=== PATIENT | female | born 1995 | race Caucasian/White ===

== ENCOUNTER → 2023-07-19 | Outpatient (CLI) | payer BC ==
[2023-07-19 21:24] LABS: HCG,Qualitative Serum Not Detected
[2023-07-20 03:01] LABS: Basophils # (A) 0.02 X 10*3/uL (0.00-0.10); Basophils % (A) 0.2 %; Eosinophils # (A) 0.05 X 10*3/uL (0.04-0.35); Eosinophils % (A) 0.6 %; HGB 12.6 g/dL (12.0-15.0); Lymphocytes # (A) 2.15 X 10*3/uL (0.90-5.00); Lymphocytes % (A) 26.7 %; MCH 28.7 pg (27.0-32.0); MCHC 32.3 g/dL (32.0-37.0); MCV 88.8 FL (80.0-97.0); Mean Platelet Volume 12.3 FL (9.5-12.2); Monocytes # (A) 0.56 X 10*3/uL (0.20-1.00); NRBC Per 100 WBC 0 X 10*3/uL (0.00-0.01); Neutrophils # (A) 5.25 X 10*3/uL (1.80-7.70); Neutrophils % (A) 65.3 %; Platelet Count 175 X 10*3/uL (140-440); RBC 4.39 X 10*6/uL (4.10-5.20); RDW 13.5 % (11.5-14.5); WBC 8.05 X 10*3/uL (4.50-10.00)
[2023-07-20 03:02] LABS: ALT 9 U/L (8-44); AST 19 U/L (13-35); Albumin 4.5 g/dL (3.8-4.9); Albumin/Globulin Ratio 1.55 Ratio (1.60-3.17); Alkaline Phosphatase 81 U/L (41-126); BUN/Creat Ratio 17.33 Ratio (12.00-20.00); Blood Urea Nitrogen 10.4 mg/dL (9.0-27.0); Calcium 10.1 mg/dL (8.7-10.3); Carbon Dioxide 22.3 mmol/L (21.6-31.8); Chloride 106 mmol/L (96-109); Globulin 2.9 g/dL (1.6-3.3); Glucose 92 mg/dL (70-110); Potassium 3.7 mmol/L (3.5-5.5); Sodium 141 mmol/L (135-145); Total Bilirubin 0.2 mg/dL (0.3-1.2); Total Protein 7.4 g/dL (6.2-8.2)
[2023-07-20 06:22] LABS: HIV 2 AB Non-Reactive (Non-Reactive); HIV AB P24 Non-Reactive (Non-Reactive); HIV P24 AG Non-Reactive (Non-Reactive)
[2023-07-20 06:24] LABS: HSV I IgG Interp Negative (Negative); HSV II IgG Interp Negative (Negative)
== END | disposition home or self-care (01) ==
LOC: LABWHC1 15:42
PROVIDERS: ATTEND Internal Medicine
DX: Z00.00 Encounter for general adult medical examination without abnormal findings (principal); Z72.51 High risk heterosexual behavior
CPT/HCPCS: 36415; 80053; 84443; 84703; 85025; 86695; 86696; 86780; 87390

== ENCOUNTER → 2023-08-15 | Outpatient (CLI) | payer BC ==
--- NOTE | 2023-08-15 19:27 | US ---
EXAMINATION TYPE: US thyroid st tissue head/neck DATE OF EXAM: 08/15/2023 COMPARISON: NONE CLINICAL INDICATION: Female, 28 years old with history of R59.0 ENLARGED LYMPH N; multiple small p alpables along hairline and within hairline on the left side of neck, ongoing for a while, no pain to day, they have hurt before TECHNIQUE: Soft tissue scan of the left side of neck near hairline FINDINGS: At 3 different sites on patient left neck, they appear to be lymph nodes versus other etio logy. Left neck near hairline - possible node = 0.9 x 1.0 x 0.3cm Left occipital region within hair line - cyst versus node = 0.7 x 0.7 x 0.2cm Left lateral neck at parotid gland - 1.0 x 1.0 x 0.5cm probable node Follow-up can be performed for changing clinical conditions. IMPRESSION: 1. Small hypoechoic areas at the palpable regions discussed above. Lymph nodes are likely within the differential. Other etiologies are not excluded. If additional imaging would be of benefit, CT soft t issue neck with contrast could be performed for additional evaluation.
== END | disposition home or self-care (01) ==
LOC: RADUSWWP 13:27
PROVIDERS: ATTEND Internal Medicine
DX: N60.01 Solitary cyst of right breast (principal); R59.0 Localized enlarged lymph nodes
CPT/HCPCS: 76536

== ENCOUNTER → 2023-10-13 | Outpatient (CLI) | payer BC ==
--- NOTE | 2023-10-13 14:47 | P.GSCN ---
History of Present Illness Consult date: 10/13/23 Reason for Consult: mass right breast Requesting physician: Javier Rice History of present illness: Judi is a 28 year old female seen in consultation for Dr. Rice regarding a right breast ultrasound abnormality. She had a right breast ultrasound done on 08-15-23 which showed a 2 by 1.2 by 1.7 cm lesion at the 11:00 position. In the past this was 1.9 by 1.1 by 1.1 on 09-29-20. The patient is able to feel the lump since 2020, and it has increased in size. The biopsy was done in 2020 and she does not have the results. She does not complain of any other masses or lumps in either breast. She is not complaining of any nipple discharge or skin changes. She has not had any surgery on her breast. She has not had any recent trauma or infection in her breast. Her breast get swollen right before her menstrual periods, regular on BCP last one 1 week ago Caffeine:1 coffee/day occasional energy drink nicotine: none/ used to vape chocolate: occasional BCP: she is on these now started 1 month ago; she has not noted any changes in her bresat related to them Family History: none Hormonal History: menarche: 15 [id number], LMP 1 week ago Surgical History: wisdom teeth Medical History: none Social history: Nicotine: Used to vape not now Alcohol: Occasional Drugs: Negative Review of Systems - Constitutional Denies fever, Denies weight loss - EENT Eyes: denies blurred vision Ears: left: tinnitus, deny: decreased hearing Ears, nose, mouth and throat: Denies dysphagia - Breasts bilateral: as per HPI - Cardiovascular Denies chest pain, Denies shortness of breath - Respiratory Denies cough, Denies 7 - Gastrointestinal Reports as per HPI - Genitourinary Genitourinary: Denies dysuria, Denies hematuria Menstruation: Reports as per HPI - Musculoskeletal Reports as per HPI - Integumentary Denies rash, Denies unusual bruising - Neurological Denies headaches, Denies syncope - Psychiatric Reports as per HPI - Endocrine Reports as per HPI, Reports fatigue - Hematologic/Lymphatic Reports as per HPI - Allergic/Immunologic Reports seasonal allergies Past Medical History History of Any Multi-Drug Resistant Organisms: None Reported Smoking Status: Never smoker Medications and Allergies Home Medications Medication Instructions Recorded Confirmed Type No Known Home Medications 10/13/23 10/13/23 History Allergies Allergy/AdvReac Type Severity Reaction Status Date / Time No Known Allergies Allergy Verified 10/13/23 14:13 Surgical - Exam Vital Signs Temp Pulse Resp BP Pulse Ox 97.8 F 86 17 103/72 98 10/13/23 14:13 10/13/23 14:13 10/13/23 14:13 10/13/23 14:13 10/13/23 14:13 - General no distress - Eyes normal ocular movement - ENT no hearing loss - Neck trachea midline - Respiratory normal respiratory effort, clear to auscultation - Cardiovascular Rhythm: regular Heart Sounds: normal: S1, S2 - Abdomen Abdomen: soft, non tender, no guarding, no rigid, no rebound - Integumentary normal turgor - Neurologic no disoriented, no combative - Musculoskeletal normal gait - Psychiatric oriented to time, oriented to person, oriented to place, speech is normal, memory intact Breast Exam: BRA: 32C Inspection: Right breast slightly larger than left breast, bilateral grade 1 ptosis Palpation: Right breast: Dense breast tissue, palpable nodule approximately 11 o'clock position approximately 2 cm in size, additionally in the more lateral aspect of the breast there appears to be denser breast tissue which may be a second nodule Right axilla: No adenopathy of concern Left breast: Dense breast tissue no dominant masses or nodules of concern Left axilla: No adenopathy of concern Results Impression: Ultrasound performed 08-15-2023 at [facility] personally reviewed there appears to be a 2.0 x 1.2 x 1.7 slightly hypoechoic area in the 11 o'clock position of the right breast. This has increased in size from a prior ultrasound in 2020. Plan: Bilateral complete breast ultrasound Obtain results of the core biopsy from the right breast which was done in 2020 at [facility] Probable repeat ultrasound core biopsy of the 2 cm lesion which was seen here radiographically Follow-up after above done CC: DR. Rice
[2023-10-13 14:58] VITALS: BP 103/72; PULSE 86; RESP 17; TEMP 97.8
== END ==
LOC: WWCWWP 13:36
PROVIDERS: ATTEND Surgery
DX: N63.10 Unspecified lump in the right breast, unspecified quadrant (principal); Z87.891 Personal history of nicotine dependence

== ENCOUNTER → 2023-10-23 | Outpatient (CLI) | payer BC ==
--- NOTE | 2023-10-23 10:48 | USB ---
Reason for Exam: Clinical finding. Patient History: 10/22/2020, Ultrasound-Guided Core Biopsy on the Right side. Technique: Method: Whole Breast Handheld. Prior Study Comparison: 09/29/2020 Right Diagnostic Ultrasound, [facility]. 10/22/2020 Right Diagnostic Mammogram, [facility]. 08/15/2023 Right US breast limited RT, [facility]. Findings: The whole breast of both breasts, the axilla of both breasts and the retroareolar of both breasts were scanned. Whole bilateral breast ultrasounds are performed including scanning of the subareolar region and axilla. Right: Dense tissues are present throughout. At the 11:00 position, 6 cm from the nipple, there is a lobulated isoechoic mass with through transmission that was previously biopsied, currently measuring 2.1 x 2.0 x 1.4 cm (versus 2.0 x 1.7 x 1.2 cm, previously), slightly larger in the interval. New are a couple adjacent nodules that may represent small intramammary lymph nodes measuring 7 x 3 mm and 6 x 4 mm. And the bilateral adnexa, nonenlarged but mildly thickened lymph nodes are noted in the cortex measuring up to 4 mm. Left: Otherwise, no additional solid or cystic lesion is seen. Overall Assessment: Probably benign, BI-RAD 3 Management: Diagnostic Breast Ultrasound of both breasts in 3 months. For the mildly thickened but nonenlarged axillary lymph nodes, likely reactive/post inflammatory. Further surgical management of the benign right breast mass as indicated. Results were given to the patient verbally at the time of exam. Electronically signed and approved by: Desiree Hooper M.D. Radiologist
== END | disposition home or self-care (01) ==
LOC: RADUSWWP 10:08
PROVIDERS: ATTEND Surgery
DX: N63.11 Unspecified lump in the right breast, upper outer quadrant (principal); N63.20 Unspecified lump in the left breast, unspecified quadrant